=== PATIENT | male | born 1965 | race American Indian/Alaskan Native ===

== ENCOUNTER 2021-03-11 07:14 | Outpatient (CLI) | payer OTHER ==
[2021-03-11 20:55] LABS: SARS-CoV-2 PCR by NAA Not Detected (NotDetected)
== END 2021-03-11 07:15 | disposition home or self-care (01) ==
LOC: CSHLAB 07:14
PROVIDERS: ATTEND Internal Medicine Gastroenterology
DX: Z20.822 Contact with and (suspected) exposure to COVID-19 (principal); Z12.11 Encounter for screening for malignant neoplasm of colon
CPT/HCPCS: U0003; U0005

== ENCOUNTER 2021-04-05 09:02 | Outpatient (CLI) | payer OTHER ==
[2021-04-05 10:16] LABS: Hemoglobin 15.5 g/dL (13.5-17.5); Mean Corpuscular HGB CONC 33.4 g/dL (32.0-36.0); Mean Corpuscular Volume 89.7 fl (81.2-95.1); Mean Platelet Volume 10.7 fl (7.4-10.4); Platelet Count 213 10x3/uL (150-450); RBC Distribution Width 12.8 % (11.5-14.5); Red Blood Cell (RBC) Count 5.17 10x6/uL (4.32-5.72); White Blood Cell (WBC) Count 5.5 10x3/uL (3.5-10.5)
[2021-04-05 10:31] LABS: PTT 27.1 sec (22.0-33.0); Prothrombin Time 11.2 sec (9.5-12.1)
[2021-04-05 10:47] LABS: Anion Gap 13 mmol/L (10-20); BUN (Urea Nitrogen) 19 mg/dL (8.4-25.7); Calc. Creatinine Clearance 0 mL/min (70-130); Carbon Dioxide 25 mmol/L (22-29); Chloride 108 mmol/L (98-107); Glucose 96 mg/dL (70-105); Potassium 3.8 mmol/L (3.5-5.1); Sodium 142 mmol/L (136-145)
[2021-04-05 20:02] LABS: SARS-CoV-2 PCR by NAA Not Detected (NotDetected)
== END 2021-04-05 09:03 | disposition home or self-care (01) ==
LOC: CSHLAB 09:02
PROVIDERS: ATTEND Orthopaedic Surgery
DX: Z01.818 Encounter for other preprocedural examination (principal); Z20.822 Contact with and (suspected) exposure to COVID-19; M16.11 Unilateral primary osteoarthritis, right hip
CPT/HCPCS: 80048; 85027; 85610; 85730; 86850; 86900; 86901; 87081; 93005; 93010; U0003; U0005

== ENCOUNTER 2021-08-25 08:06 | Outpatient (CLI) | payer OTHER ==
[2021-08-25 10:53] LABS: Hemoglobin 15.1 g/dL (13.5-17.5); Mean Corpuscular HGB CONC 33.1 g/dL (32.0-36.0); Mean Corpuscular Hemoglobin 29.8 pg (27.0-33.0); Mean Corpuscular Volume 90.1 fl (81.2-95.1); Mean Platelet Volume 11.1 fl (7.4-10.4); Platelet Count 226 10x3/uL (150-450); RBC Distribution Width 12.9 % (11.5-14.5); Red Blood Cell (RBC) Count 5.06 10x6/uL (4.32-5.72); White Blood Cell (WBC) Count 5.5 10x3/uL (3.5-10.5)
[2021-08-25 11:22] LABS: Anion Gap 12 mmol/L (10-20); BUN (Urea Nitrogen) 16 mg/dL (8.4-25.7); Calc. Creatinine Clearance 0 mL/min (70-130); Calcium 8.8 mg/dL (7.8-10.44); Carbon Dioxide 27 mmol/L (22-29); Chloride 107 mmol/L (98-107); Glucose 102 mg/dL (70-105); Potassium 4.5 mmol/L (3.5-5.1); Sodium 141 mmol/L (136-145)
[2021-08-25 11:23] LABS: PTT 27.7 sec (22.0-33.0); Prothrombin Time 10.9 sec (9.5-12.1)
[2021-08-25 21:44] LABS: SARS-CoV-2 PCR by NAA Not Detected (NotDetected)
== END 2021-08-25 08:07 | disposition home or self-care (01) ==
LOC: CSHLAB 08:06
PROVIDERS: ATTEND Orthopaedic Surgery
DX: Z01.818 Encounter for other preprocedural examination (principal); Z20.822 Contact with and (suspected) exposure to COVID-19
CPT/HCPCS: 80048; 85027; 85610; 85730; 87081; 93005; 93010; U0003; U0005

== ENCOUNTER 2021-08-30 06:00 | Inpatient (IN) | payer OTHER ==
[2021-08-19 14:19] VITALS: BMI 31.1
[2021-08-30] MEDS ORDERED: Lidocaine 1% MPF 2 ML VIAL ONE (06:18)
[2021-08-30] MEDS ORDERED: Ketorolac Tromethamine 30 MG/ML VIAL ONE ×2 (06:49→09:25)
[2021-08-30] MEDS ORDERED: Bupivacaine 0.25% HCL 30 ML VIAL ONE ×2 (06:49→07:30)
[2021-08-30] MEDS ORDERED: EPINEPHrine 1 MG/ML AMP ONE (06:49)
[2021-08-30] MEDS ORDERED: Neomycin-Polymyxin 1 ML AMP ONE (06:50)
[2021-08-30] MEDS ORDERED: Lidocaine 2% Jelly 5 ML TUBE ONE (07:18)
[2021-08-30] MEDS ORDERED: Lidocaine 1% PF 5 ML VIAL ONE (07:23)
[2021-08-30] MEDS ORDERED: PROPOFOL 20 ML ONE (07:23)
[2021-08-30] MEDS ORDERED: Fentanyl 100 MCG/2 ML VIAL ONE (07:23)
[2021-08-30] MEDS ORDERED: Rocuronium Bromide 10 MG/ML (10ML VIAL) ONE (07:23)
[2021-08-30] MEDS ORDERED: Midazolam HCl 2 mg/2 ml Vial ONE (07:30)
[2021-08-30] MEDS ORDERED: Tranexamic Acid 1,000 MG/10 ML VIAL ONE (07:31)
[2021-08-30] MEDS ORDERED: ceFAZolin 2 GM/Dextrose 50 ML IVPB ONE (07:32)
[2021-08-30] MEDS ORDERED: Dexamethasone 20 MG/5 ML VIAL ONE (08:23)
[2021-08-30] MEDS ORDERED: Glycopyrrolate 0.2 MG/ML 5 ML SYRINGE ONE (09:25)
[2021-08-30] MEDS ORDERED: Ondansetron PF 4 MG/2 ML Vial ONE (09:25)
[2021-08-30] MEDS ORDERED: diphenhydrAMINE 25 MG CAP PO PRN (10:03)
[2021-08-30] MEDS ORDERED: Morphine 4 MG/ML VIAL SLOW IVP PRN ×2 (10:03→10:10)
[2021-08-30] MEDS ORDERED: HYDROcodone/Acetaminophen 10/325 mg Tablet PO PRN ×2 (10:03)
[2021-08-30] MEDS ORDERED: Acetaminophen 325 MG TAB PO PRN (10:03)
[2021-08-30] MEDS ORDERED: Ondansetron PF 4 MG/2 ML Vial IVP PRN (10:03)
[2021-08-30] MEDS ORDERED: Promethazine HCl 25 MG/ML VIAL IM PRN (10:03)
[2021-08-30] MEDS ORDERED: HYDROmorphone 0.5 MG/0.5 ML SYRINGE ONE (10:43)
[2021-08-30] MEDS: ceFAZolin 2 GM/Dextrose 50 ML 2 GM in Premix Bag 1 BAG IVPB SCH ×2 (16:21→23:04)
[2021-08-30] MEDS: Ketorolac Tromethamine 30 MG/ML VIAL IVP SCH ×2 (16:22→23:03)
[2021-08-30] MEDS: Sodium Chloride 0.9% 1,000 ML IV SCH ×2 (18:29→21:42)
[2021-08-30] MEDS: Carvedilol 12.5 MG TAB PO SCH (21:31)
[2021-08-30] MEDS: Aspirin 81 mg Enteric Coated Tablet PO SCH (21:32)
[2021-08-30] MEDS: Ferrous Gluconate 324 MG TAB PO SCH (21:32)
[2021-08-30] MEDS: Senokot S 8.6-50 MG TAB PO SCH (21:33)
[2021-08-31 04:38] LABS: Hemoglobin 12.7 g/dL (13.5-17.5); Mean Corpuscular HGB CONC 33.6 g/dL (32.0-36.0); Mean Corpuscular Hemoglobin 30.1 pg (27.0-33.0); Mean Corpuscular Volume 89.6 fl (81.2-95.1); Mean Platelet Volume 10.9 fl (7.4-10.4); Platelet Count 215 10x3/uL (150-450); RBC Distribution Width 12.8 % (11.5-14.5); Red Blood Cell (RBC) Count 4.22 10x6/uL (4.32-5.72); White Blood Cell (WBC) Count 8.3 10x3/uL (3.5-10.5)
[2021-08-31] MEDS: Sodium Chloride 0.9% 1,000 ML IV SCH ×2 (05:55→09:16)
[2021-08-31] MEDS: Ketorolac Tromethamine 30 MG/ML VIAL IVP SCH ×2 (07:32→14:42)
[2021-08-31] MEDS ORDERED: Multivitamin W/ Minerals 1 TAB PO SCH (09:00)
[2021-08-31] MEDS: Carvedilol 12.5 MG TAB PO SCH (09:15)
[2021-08-31] MEDS: Ferrous Gluconate 324 MG TAB PO SCH (09:15)
[2021-08-31] MEDS: Senokot S 8.6-50 MG TAB PO SCH (09:15)
[2021-08-31] MEDS: Aspirin 81 mg Enteric Coated Tablet PO SCH (09:15)
[2021-08-31 17:01] VITALS: BP 134/79; TEMP 98
== END 2021-08-31 18:00 | disposition home or self-care (01) | DRG 470 ==
LOC: CSHSDC 06:00 → CSHTELE 15:06
PROVIDERS: ADMIT Orthopaedic Surgery; ATTEND Orthopaedic Surgery
PROC: 0SR90JZ Replacement of Right Hip Joint with Synthetic Substitute, Open Approach (ICD-10-PCS; principal; 2021-08-30)
DX: M16.11 Unilateral primary osteoarthritis, right hip (principal); I10 Essential (primary) hypertension
CPT/HCPCS: 36415; 85027; 94760; C1713; C1776; J0171; J0690; J1100; J1170; J1885; J2250; J2405; J2704; J3010; J3370; J7050; S0020